=== PATIENT | male | born 1980 | race Caucasian/White ===

== ENCOUNTER → 2023-08-10 | Day surgery (SDC) | payer OTHER ==
[~2023-08-10] VITALS: Ht 160 cm; Wt 74.0 kg
[~2023-08-10] MED LIST: ACCU-CHEK COMFORT CURVE STRIP VI ONE; KETAMINE 50mg/ML 10ml Vial 10 ML ONE; KETAMINE 50mg/ML 1ml syringe ONE; MEPERIDINE HCL (50 MG/ML) 1 ML VIAL ONE; METOCLOPRAMIDE HCL 5MG/ml INJ 2ml VIAL IV PRN; MIDAZOLAM HCL 2MG/2ML 2ml VIAL (1mg/ml) ONE; PROPOFOL 10 MG/ML 20 ML IV ONE; SODIUM CHLORIDE LOCK 10 ML ONE; fentaNYL CITRATE 100 MCG/2 ML VL ONE
[2023-08-10] MEDS: cefTRIAXone 1GM/50ML D5W 50 ML IV ONE (13:57)
[2023-08-10] MEDS: SODIUM CHLORIDE 0.9% 1,000 ML IV ONE (13:57)
[2023-08-10 14:02] VITALS: O2SAT 99
[2023-08-10 14:19] LABS: Basophils # (auto) 0.1 10 ^3/uL (0-0.2); Basophils % (auto) 0.5 % (0.0-2.0); Eosinophils # (auto) 0.2 10 ^3/uL (0-0.8); Eosinophils % (auto) 1.3 % (0.0-7.0); Hematocrit 45.9 % (41.0-53.0); Hemoglobin 15.2 g/dL (13.5-17.5); Lymphocytes # (auto) 1.9 10 ^3/uL (0.4-5.4); Mean Corpuscular Hemoglobin 29.9 pg (28.0-32.0); Mean Corpuscular Hgb Conc. 33.2 g/dL (32.0-36.0); Mean Corpuscular Volume 90.3 fL (80.0-100.0); Monocytes # (auto) 0.9 10 ^3/uL (0-1.3); Monocytes % (auto) 6.3 % (0.0-12.0); Neutrophils # (auto) 11.8 10 ^3/uL (1.6-8.6); Neutrophils % (auto) 78.9 % (37.0-80.0); Red Blood Cells 5.09 10^6/uL (4.5-5.90); Red Cell Distribution Width 13.5 % (11.8-14.3)
[2023-08-10] MEDS: METOCLOPRAMIDE HCL 5MG/ml INJ 2ml VIAL IV ONE (14:20)
[2023-08-10] MEDS: HYDROmorphone HCL 2 MG/ML VL/or syr IV ONE ×2 (14:20→18:15)
[2023-08-10 14:24] LABS: Chloride 105 mmol/L (98-107); Potassium 4.5 mmol/L (3.5-5.1); Sodium 136 mmol/L (136-145)
[2023-08-10 14:25] LABS: Anion Gap 9 (5-15); Carbon Dioxide 22 mmol/L (20-30)
[2023-08-10 14:26] LABS: Calcium 9.9 mg/dL (8.5-10.1)
[2023-08-10 14:30] LABS: BUN/Creatinine Ratio 10.8 (10.0-20.0); Blood Urea Nitrogen 8 mg/dL (9-23); Glucose 75 mg/dL (74-106)
[2023-08-10 18:15] LABS: Urine Bacteria NONE SEEN /hpf (None Seen); Urine Blood 2+ /uL (Negative); Urine Clarity HAZY (Clear); Urine Color Colorless (Yellow); Urine Protein, UAD TRACE (Negative); Urine Urobilinogen Normal (Negative); Urine WBC 316 /hpf (0 - 3); Urine WBC Clumps PRESENT /hpf (None Seen); Urine pH 5.5 (5.0-8.0)
[2023-08-10 19:27] LABS: INR 1.04 (0.9-1.15); Partial Thromboplastin Time 27.6 SEC (24.5-34.5); Prothrombin Time 10.9 sec (9.3-11.8)
[2023-08-10 20:01] VITALS: PULSE 83; RESP 8; TEMP 98.7; O2SAT 98
[2023-08-10 20:10] VITALS: PULSE 81; RESP 8; O2SAT 100
[2023-08-10] MEDS: MORPHINE SULFATE INJ 2 MG/ml SYRG IV PRN (20:35)
[2023-08-10] MEDS: HYDROmorphone HCL 2 MG/ML VL/or syr IV PRN ×2 (20:48→20:49)
[2023-08-10 21:02] VITALS: BP 149/98; PULSE 92; RESP 21; O2SAT 98
== END | disposition home or self-care (01) ==
LOC: ER 11:47 → EEVIPCON 11:47 → SUR 18:22
PROVIDERS: ATTEND Urology
DX: T19.0XXA Foreign body in urethra, initial encounter (principal); I10 Essential (primary) hypertension; W44.9XXA Unspecified foreign body entering into or through a natural orifice, initial encounter
CPT/HCPCS: 36415; 52310; 72170; 80048; 81001; 85025; 85610; 85730; 99284; C1769; J0696; J1170; J2175; J2250; J2270; J2704; J2765; J3010; J7030